=== PATIENT | male | born 1970 | race Caucasian/White ===

== ENCOUNTER 2023-06-05 02:00 | Day surgery (SDC) | payer BC, SELFPAY ==
[2023-05-26 14:27] VITALS: BMI 34.0
--- NOTE | 2023-05-26 14:33 | PC.NURSE ---
Report to the Outpatient Waiting Room, entrance under the green pavilion located off [facility], at time 12:30 on date 06/05/23. Planned Procedure Time: 2:30. Time changes happen often and if your time is changed the preop area will call you the afternoon before. - You and your visitor will be asked to self-screen and do not enter if you have any COVID symptoms. - A mask is optional within the hospital at this time. Patients may have clear liquids (water, carbonated beverages, clear teas, apple juice) until 3 hours prior to surgery with a maximum of 20 ounces. - No food from midnight until time of surgery Take the following medications with a SIP of water the morning of surgery: PAROXETINE DO NOT STOP ANY OF YOUR OTHER PRESCRIPTION MEDICATIONS PRIOR TO SURGERY ?EXCEPT THE FOLLOWING Medications to discontinue per physician: N/A Date to take last dose: N/A Please no make-up, nail belarusian, hairspray, perfume, deodorant, or body powder the day of surgery. No jewelry (including any body piercings) or valuables the day of surgery, leave them at home. Please take a shower or bath the night before, or the morning of, surgery with an antibacterial soap. Wear comfortable, loose fitting clothing. - Jewelry must be removed prior to entering the operating room. Rings and piercings that are not removed may be cut off. - The hospital will not accept responsibility for valuables. - Please leave all valuables, including medications, at home the day of surgery. If you are going home after surgery, a licensed mechanic driver must drive you home. - NO public transportation without another adult if you receive anesthesia. - We recommend that an adult stay with you for 24 hours following discharge. - We also recommend that you do not drive, make important decision, drink alcoholic beverages, or take any drugs that were not prescribed by your health care provider for at least 24 hours after your discharge time. Follow any additional instructions given to you from your surgeon. If you or anyone in your household have experienced Covid symptoms in the past week, please notify your surgeon or the nurse liaison at the phone number below for possible testing. Telephone instructions given to PT - BIBI SHEIKH and asked if any additional questions and then verbalized understanding. Patient advised to call surgeon office or pre surgery nurse liaison [phone] if any additional questions.
[2023-06-05] VITALS (11 sets, daily range): BP systolic 132–166; BP diastolic 71–96; PULSE 73–113; RESP 12–20; TEMP 36.4; O2SAT 97–100
--- NOTE | 2023-06-05 09:50 | ECG_ITS ---
Measurements Intervals [place] Rate: 69 P: 29 ME: 157 QRS: -4 QRSD: 96 T: 34 QT: 390 QTc: 419 Interpretive Statements SINUS RHYTHM NORMAL ECG NO PREVIOUS ECG AVAILABLE FOR COMPARISON Electronically Signed On 06-05-2023 11:38:02 CDT by Vel Jones D.O.
--- NOTE | 2023-06-05 11:49 | WPDANESEPPF ---
Anes - Initial Pre Proc Eval Procedure: Operation Date: 06/05/23 13:30 Proposed Procedures p Excision Left Arm Lipomas Times Three, Excision Right Arm Lipomas Times Two, Excison Lower Back Lipoma - Ori Malone MD Date/Time: 06/05/23 11:49 Surgeon: Ori Malone MD Pre Op Diagnosis: lipomas bilat arms, lower back lipoma Patient Data Age: 52 Gender: M Height: 1.75 m Weight: 108.1 kg Last Vital Signs Temp 97.6 F 06/05/23 11:18 Pulse 73 06/05/23 11:18 Resp 20 06/05/23 11:18 BP 139/90 06/05/23 11:18 Pulse Ox 97 06/05/23 11:18 O2 Del Method Room Air 06/05/23 11:18 Allergies Allergy/AdvReac Type Severity Reaction Status Date / Time Sulfa (Sulfonamide Allergy Severe Anaphylactic Verified 06/05/23 11:21 Antibiotics) Shock Bumble Bee Allergy Severe Anaphylactic Uncoded 06/05/23 11:20 Shock Cat Dander Allergy Severe Anaphylactic Uncoded 06/05/23 11:20 Shock Contrast Media Allergy Severe STOP Uncoded 06/05/23 11:20 BREATHING- SWELL UP SHELLFISH Allergy Severe SWELL UP Uncoded 06/05/23 11:20 AND CAN'T BREATH Home Medications Medication Instructions Recorded Confirmed Type albuterol sulfate 90 mcg/actuation 2 inh inhalation Q4H PRN shortness 05/01/23 06/05/23 Rx aerosol inhaler of breath or wheezing #8.5 grams losartan 50 mg tablet 50 mg PO DAILY #90 tabs 05/01/23 06/05/23 Rx paroxetine HCl 20 mg tablet 60 mg PO DAILY #270 tabs 05/01/23 06/05/23 Rx cetirizine 10 mg tablet (Zyrtec) 10 mg PO DAILY 05/26/23 06/05/23 History epinephrine 0.15 mg/0.15 mL 0.15 mg IM PRN PRN Anaphylaxis 06/05/23 06/05/23 History auto-injector (for 33 to 66 lb patients) Patient hx anesthesia problems: none Family hx anesthesia problems: none Results Review: All pre-operative results and documents have been reviewed as part of the pre-operative evaluation. [facility] Past Medical History Medical History History of non-Hodgkin's lymphoma Hypertension Pure hypercholesterolemia, unspecified Surgical History Surgical History History of cholecystectomy (2015) History of Hemal fundoplication History of tonsillectomy (2015) Family History Family History Father Multiple sclerosis CAD (coronary artery disease) Mother Diabetes mellitus Hypertension CAD (coronary artery disease) Social History Social History Smoking packs per day: 1 Smoking cigarettes per day: 20.0 Years smoked: 15 Smoking pack-years: 15.00 Smoking status: Former smoker Tobacco type: cigarettes Smoking end date: 11/27/99 Alcohol intake: current Alcohol use details: VERY RARE Substance use: never Substance use type: does not use Living arrangements: with family Additional living arrangements comments: CHILDREN Spiritual care concerns: No Anes - Eval Final PreProcedure Day of Procedure 06/05/23 11:49 Patient weight: obese Heart: regular rate and rhythm Lungs: clear to auscultation Airway: Mallampati scale class III Neurological: alert and oriented Last oral intake: >/= 8 hours ASA classification: III Emergent: no Anesthetic plan: proceed Anesthesia type and monitoring: general LMA and standard monitoring Results Review: All pre-operative results and documents have been reviewed as part of the pre-operative evaluation. Informed Consent: The patient's anesthetic plan and its attendant risks and benefits were discussed with the patient/family/POA. Questions were solicited and answers provided to the satisfaction of the patient/family/POA.
[2023-06-05] MEDS: LACTATED RINGERS 1,000 ML 30 ML IV CONT ×2 (11:54→15:01)
--- NOTE | 2023-06-05 12:27 | WPDHPUPDATE1 ---
History and Physical Update Update Date/Time: 06/05/23 12:27 History and Physical has been reviewed, including an updated exam of the patient. There are NO changes in the patient's condition. Risks, benefits, and alternatives have been discussed and questions answered. Patient agrees to proceed with procedure.
[2023-06-05] MEDS: ceFAZolin 2 GM/D5W 50 ML 2 GM/50 ML BAG IVPB (12:51)
[2023-06-05] MEDS: LIDO 1%/EPINEPHRINE 1:100,000 50 ML VIAL 20 ML INFILTRATE (14:24)
[2023-06-05] MEDS: fentaNYL CITRATE INJ (*CRX) 100 MCG/2 ML VIAL 25 MCG IV PUSH ×8 (15:34→15:57)
--- NOTE | 2023-06-05 16:20 | W.PM.PROC2 ---
Procedure Note - Detailed Date of Procedure 06/05/23 Pre-op Diagnosis lipomas bilat arms, lower back lipoma Post-op Diagnosis Same Procedure Performed Excision of lower back lipoma x1, right medial upper arm lipoma x1, right lateral forearm lipoma x1, left volar forearm lipoma x1, and left dorsal forearm lipoma x1. Surgeon Ori Malone MD Project Manager [employer]aci Concepcion, [employer] Anesthesia General Indications Patient is a 52-year-old gentleman who presents with complaints of multiple soft tissue subcutaneous masses in his bilateral arms as well as on his lower mid back region. He presents now for excision of all these masses. Findings All the masses were consistent grossly with benign lipomatous masses. The lower midback mass measured 3 x 2 x 1cm, left volar forearm lipoma measured 1.5x1.0x0.5cm, left dorsal forearm lipoma measured 2x1.5x1cm, right lateral forearm lipoma was 1x1x0.5cm, and right upper arm lipoma was 2x1x0.5cm. Description of Procedure After informed consent was obtained patient brought to the operating room was placed under general endotracheal anesthesia on operating table and then turned to the right lateral decubitus position on the operating table secured on a beanbag. The area the lower mid back region was then prepped and draped in usual sterile fashion a time-out was then performed correctly identifying the patient as well as procedure to be performed and verifying all the site markings. He was given perioperative IV antibiotics. I then made a transverse incision over the palpable mass in the mid lower back region with a scalpel dissected down through the subcutaneous tissue electrocautery. I then encountered the capsule of the lipomatous mass and dissected around the mass with a combination of electrocautery blunt finger dissection. Once I had the mass completely excised out and measured and it was 3cm in length by 2cm in width by 1cm in depth it was sent to pathology for examination. I then achieved hemostasis and incision electrocautery. I then closed the incision utilizing layers and 2-0 Vicryl sutures followed by interrupted 3-0 Vicryl sutures then lastly a 4-0 Monocryl suture to approximate the skin edges in a running subcuticular fashion. The incision was then cleaned and then skin glue was applied. I then turned my attention toward excising off the lipomas in the bilateral arms. He was then turned into the supine position on the operating table and both arms were then prepped and draped in usual sterile fashion circumferentially. Started with the left arm and all of the lipomas were excised out in similar fashion as follows. A small incision was made over the palpable lipomatous mass with the scalpel and then once I was down to the dermis of skin I then spread around the counseled lipoma utilizing Metzenbaum scissors and then the lipoma was excised out utilize electrocautery. The lipoma on the left volar forearm was 1.5cm in length by 1cm width by 0.5cm in depth. The lipoma on the left dorsal forearm area was 2cm in length by 1.5cm width by 1cm in depth. These were both sent separately to pathology for examination. Both of these wounds then closed utilizing interrupted 3-0 Vicryl suture the subcutaneous tissues the skin edges were approximated utilizing a running subcuticular 4 Monocryl suture. The incisions were then cleaned the skin glue was applied. Lastly we then turned our attention to excising the lipomas off of the right arm. Again the same technique was used on the right forearm lesion and I made a transverse incision over the subcutaneous mass with a scalpel. Metzenbaum scissors were used to spread around the capsule of the mass and then it was simply excised utilizing electrocautery. this lipoma measured 1cm in length by 1cm width by 0.5cm in depth and was sent to pathology for examination. the last lipoma that was excised was on the right inner upper arm. An oblique incision made with a scalpel overlying the ma
== END 2023-06-05 17:15 | disposition home or self-care (01) ==
PROVIDERS: PCP Family Medicine Adolescent Medicine; Visit Provider Surgery
PROC: (CPT 24075; principal; 2023-06-05 13:30)
DX: D17.22 Benign lipomatous neoplasm of skin and subcutaneous tissue of left arm (principal); D17.21 Benign lipomatous neoplasm of skin and subcutaneous tissue of right arm; D17.1 Benign lipomatous neoplasm of skin and subcutaneous tissue of trunk; I10 Essential (primary) hypertension; Z79.51 Long term (current) use of inhaled steroids; Z85.72 Personal history of non-Hodgkin lymphomas; Z87.891 Personal history of nicotine dependence; E66.9 Obesity, unspecified; Z68.35 Body mass index [BMI] 35.0-35.9, adult
CPT/HCPCS: 24075; 25075; 25071; 21931; 88304; 93005; A9270; J0330; J0690; J1100; J2250; J2405; J2704; J2710; J3010; J7120

== ENCOUNTER 2023-08-25 00:50 | Day surgery (SDC) | payer BC, SELFPAY ==
[2023-08-18 13:58] VITALS: BMI 35.4
--- NOTE | 2023-08-18 13:58 | PC.NURSE ---
Report to the Outpatient Waiting Room, entrance under the green pavilion located off [facility], at time 0730 on date 08/25/23. Planned Procedure Time: 0930. Time changes happen often and if your time is changed the preop area will call you the afternoon before. - You and your visitor will be asked to self-screen and do not enter if you have any COVID symptoms. - A mask is optional within the hospital at this time. Patients may have clear liquids (water, carbonated beverages, clear teas, apple juice) until 3 hours prior to surgery with a maximum of 20 ounces. - No food from midnight until time of surgery Take the following medications with a SIP of water the morning of surgery: PAROXETINE DO NOT STOP ANY OF YOUR OTHER PRESCRIPTION MEDICATIONS PRIOR TO SURGERY ?EXCEPT THE FOLLOWING Medications to discontinue per physician: N/A Date to take last dose: N/A Please no make-up, nail hong konger, hairspray, perfume, deodorant, or body powder the day of surgery. No jewelry (including any body piercings) or valuables the day of surgery, leave them at home. Please take a shower or bath the night before, or the morning of, surgery with an antibacterial soap. Wear comfortable, loose fitting clothing. - Jewelry must be removed prior to entering the operating room. Rings and piercings that are not removed may be cut off. - The hospital will not accept responsibility for valuables. - Please leave all valuables, including medications, at home the day of surgery. If you are going home after surgery, a licensed rental car ferry driver must drive you home. - NO public transportation without another adult if you receive anesthesia. - We recommend that an adult stay with you for 24 hours following discharge. - We also recommend that you do not drive, make important decision, drink alcoholic beverages, or take any drugs that were not prescribed by your health care provider for at least 24 hours after your discharge time. Follow any additional instructions given to you from your surgeon. If you or anyone in your household have experienced Covid symptoms in the past week, please notify your surgeon or the nurse liaison at the phone number below for possible testing. Telephone instructions given to PT - BIBI SHEIKH and asked if any additional questions and then verbalized understanding. Patient advised to call surgeon office or pre surgery nurse liaison [phone] if any additional questions.
[2023-08-25] VITALS (13 sets, daily range): BP systolic 92–155; BP diastolic 60–96; PULSE 66–100; RESP 13–20; TEMP 36.1–36.2; O2SAT 91–100
[2023-08-25] MEDS: LACTATED RINGERS 1,000 ML 30 ML IV CONT (08:44)
--- NOTE | 2023-08-25 09:41 | WPDHPUPDATE1 ---
History and Physical Update Update Date/Time: 08/25/23 09:41 History and Physical has been reviewed, including an updated exam of the patient. There are NO changes in the patient's condition. Risks, benefits, and alternatives have been discussed and questions answered. Patient agrees to proceed with procedure.
--- NOTE | 2023-08-25 09:42 | WPDANESEPPF ---
Anes - Initial Pre Proc Eval Procedure: Operation Date: 08/25/23 09:30 Proposed Procedures p Excision of Subcutaneous Mass Right Flank Times Two, Left Flank Times One - Ori Malone MD Date/Time: 08/25/23 09:42 Surgeon: Ori Malone MD Pre Op Diagnosis: Praveen Flank Subq masses Patient Data Age: 53 Gender: M Height: 1.75 m Weight: 109.8 kg Last Vital Signs Temp 97 F L 08/25/23 08:37 Pulse 79 08/25/23 08:37 Resp 14 08/25/23 08:37 BP 133/89 08/25/23 08:37 Pulse Ox 97 08/25/23 08:37 O2 Del Method Room Air 08/25/23 08:37 Allergies Allergy/AdvReac Type Severity Reaction Status Date / Time Sulfa (Sulfonamide Allergy Severe Anaphylactic Verified 08/25/23 08:46 Antibiotics) Shock Bumble Bee Allergy Severe Anaphylactic Uncoded 08/25/23 08:46 Shock Cat Dander Allergy Severe Anaphylactic Uncoded 08/25/23 08:46 Shock Contrast Media Allergy Severe STOP Uncoded 08/25/23 08:46 BREATHING- SWELL UP SHELLFISH Allergy Severe SWELL UP Uncoded 08/25/23 08:46 AND CAN'T BREATH Home Medications Medication Instructions Recorded Confirmed Type albuterol sulfate 90 mcg/actuation 2 inh inhalation Q4H PRN shortness 05/01/23 08/22/23 Rx aerosol inhaler of breath or wheezing #8.5 grams losartan 50 mg tablet 50 mg PO DAILY #90 tabs 05/01/23 08/22/23 Rx paroxetine HCl 20 mg tablet 60 mg PO DAILY #270 tabs 05/01/23 08/22/23 Rx cetirizine 10 mg tablet (Zyrtec) 10 mg PO DAILY 05/26/23 08/22/23 History epinephrine 0.15 mg/0.15 mL 0.15 mg IM PRN PRN Anaphylaxis 06/05/23 08/22/23 History auto-injector (for 33 to 66 lb patients) Patient hx anesthesia problems: none Family hx anesthesia problems: none Results Review: All pre-operative results and documents have been reviewed as part of the pre-operative evaluation. COUNTS INCLUDE 234 BEDS AT THE [facility] Past Medical History Medical History History of non-Hodgkin's lymphoma Hypertension Pure hypercholesterolemia, unspecified Surgical History Surgical History History of cholecystectomy (2014) History of Hemal fundoplication History of tonsillectomy (2015) Family History Family History Father Multiple sclerosis CAD (coronary artery disease) Mother Diabetes mellitus Hypertension CAD (coronary artery disease) Social History Social History Smoking packs per day: 1 Smoking cigarettes per day: 20.0 Years smoked: 15 Smoking pack-years: 15.00 Smoking status: Former smoker Tobacco type: cigarettes Smoking end date: 11/27/99 Alcohol intake: current Alcohol use details: VERY RARE Substance use: never Substance use type: does not use Living arrangements: with family Additional living arrangements comments: CHILDREN Spiritual care concerns: No Anes - Eval Final PreProcedure Day of Procedure 08/25/23 09:42 Patient weight: obese Heart: regular rate and rhythm Lungs: clear to auscultation Airway: Mallampati scale class II Neurological: alert and oriented Last oral intake: >/= 8 hours ASA classification: II Emergent: no Anesthetic plan: proceed Anesthesia type and monitoring: general ETT and standard monitoring Results Review: All pre-operative results and documents have been reviewed as part of the pre-operative evaluation. Informed Consent: The patient's anesthetic plan and its attendant risks and benefits were discussed with the patient/family/POA. Questions were solicited and answers provided to the satisfaction of the patient/family/POA.
[2023-08-25] MEDS: ceFAZolin 2 GM/D5W 50 ML 2 GM/50 ML BAG IVPB (09:55)
[2023-08-25] MEDS: LIDO 1%/EPINEPHRINE 1:100,000 20 ML VIAL INFILTRATE (10:30)
--- NOTE | 2023-08-25 11:04 | W.PM.PROC2 ---
Procedure Note - Detailed Date of Procedure 08/25/23 Pre-op Diagnosis Praveen Flank Subq masses Post-op Diagnosis Same Procedure Performed Excision of left flank lipoma x1 and excision of right flank lipoma x2. Surgeon Ori Malone MD Solidworks Designer [employer] [facility] Anesthesia General Indications Patient is a 53-year-old gentleman who has multiple lipomas on his body. He now presents with complaints of having soreness and enlargement of bilateral flank lipomas. He has 1 on the left side which is symptomatic and 2 on the right side which are symptomatic. Findings The mass is size were clinically consistent with benign lipomas. The 1 on the left flank was [id number]. The 2 on the right flank measured 0.8x0.8x0.5cm which was the 1 situated more inferior in the right flank and the 2nd lipoma was 4.5x3.5x1.0cm and this 1 was situated more superior in the right flank. Description of Procedure After informed consent was obtained patient brought to the operating room was placed under general endotracheal anesthesia on the gurney and then turned into the prone position on the operating table. Care was taken to make sure all the pressure points were well padded. The area the bilateral flank regions were then prepped and draped in usual sterile fashion. A time-out was then performed correctly identifying the patient as well as the procedure to what that was to be performed and verifying the bilateral flank site markings. She was given perioperative IV antibiotics. I 1st started by excising off the lipoma in the left lateral flank region. A transverse incision was made the scalpel dissecting down through the dermis skin with a scalpel I then switched to using sharp scissor dissection to identify the lipomatous mass. It had 2 parts but both parts were well circumscribed. I dissected out this lipoma from the surrounding subcutaneous tissues using electrocautery and scissor dissection. In aggregate this left flank lipoma measured [id number]. The incision was then irrigated sterile saline solution hemostasis was achieved electrocautery. It was then closed utilizing interrupted 3-0 Vicryl suture the subcu tissues in the skin edges were approximated utilizing a running subcuticular 4-0 Monocryl suture. The incision then had skin glue applied to it. I then approached excising the 2 lipomas off of the right flank. Again the similar fashion I made transverse incisions over both of these subcutaneous masses. Dissection was carried down through the dermis skin of the scalp with an utilizing a combination of electrocautery and sharp scissor dissection I was able to dissect out both of these lipomas from their surrounding subcutaneous tissues. The 1 situated more inferiorly in the right flank region measured 0.8x0.8x0.5cm. The 1 with more superiorly in the right flank region measured 4.5x3.5x1cm. Both these lipomatous masses were sent to pathology separately for examination. The incisions were then irrigated sterile saline solution hemostasis was achieved utilized electrocautery. The wounds were then closed utilizing interrupted 3-0 Vicryl sutures in subcutaneous tissues and the skin edges were then approximated utilizing a running subcuticular 4 Monocryl suture for both incisions. The incisions were then cleaned the skin glue was applied. The patient tolerated the procedure well no complications. All sponges, needles, and instrument counts were correct at the end procedure. EBL was _10__cc. The patient was awakened and taken to recovery in stable and satisfactory condition. Implants None Estimated Blood Loss 10 Drains No Packing No Pathology Yes (Bilateral flank lipomas sent to pathology) Complications No immediate complications Condition Stable Disposition PACU [facility] Billing Surgery - Charge Forward: Surgery Billing
[2023-08-25] MEDS: fentaNYL CITRATE INJ (*CRX) 100 MCG/2 ML VIAL 25 MCG IV PUSH ×8 (12:04→12:42)
[2023-08-25] MEDS: KETOROLAC 30 MG/ML VIAL (*BKC) IV PUSH (12:24)
[2023-08-25] MEDS: oxyCODONE HCL (*CRX) 5 MG TAB IR PO (12:50)
== END 2023-08-25 15:20 | disposition home or self-care (01) ==
PROVIDERS: PCP Family Medicine Adolescent Medicine; Visit Provider Surgery
PROC: (CPT 21931; principal; 2023-08-25 09:30)
DX: D17.1 Benign lipomatous neoplasm of skin and subcutaneous tissue of trunk (principal); I10 Essential (primary) hypertension; E78.00 Pure hypercholesterolemia, unspecified; Z87.891 Personal history of nicotine dependence; Z79.51 Long term (current) use of inhaled steroids; Z85.71 Personal history of Hodgkin lymphoma; E66.9 Obesity, unspecified; Z68.35 Body mass index [BMI] 35.0-35.9, adult
CPT/HCPCS: 21931 ×2; 21930; 88304; A9270; J0330; J0690; J1885; J2250; J2405; J2704; J3010; J7120

== ENCOUNTER 2024-11-06 15:53 | Emergency (ER) | payer BC, SELFPAY ==
--- NOTE | ~2024-11-06 | CT_ITS ---
EXAMINATION: CT abd pelvis lumbar wo con DATE: 11/06/2024 18:06 INDICATION: Abdominal pain. TECHNIQUE: Computed tomography (CT) of the abdomen and pelvis and lumbar spine was performed without intravenous contrast. Automated exposure control and iterative reconstruction technique were employed . The dose-length product was 1210.26 mGy-cm. COMPARISON: None FINDINGS: CT ABDOMEN AND PELVIS: The visualized portions of the lung bases demonstrate minimal atelectasis. No pleural effusion. The heart size is normal. No pericardial effusion. The liver is normal. There are c hanges of cholecystectomy. The spleen, pancreas, and adrenal glands are normal. There are cysts in th e kidneys measuring up to 17 mm on the left. There is no urolithiasis. The prostate is mildly enlarge d. There is a left inguinal hernia containing fat. There are no dilated loops of bowel. The appendix is normal. There are no pathologically enlarged lymph nodes. There is no free intraperitoneal fluid. CT LUMBAR SPINE: L5 is a transitional segment. There are chronic bilateral L5 pars defects. Vertebral body heights are normal. There is mildly decreased disc height at L4-L5. The following disc levels a re specifically discussed: L1-L2: The disc does not extend beyond the endplate margin. There is mild bilateral facet joint osteo arthritis. There is no neural foraminal stenosis. There is no central canal stenosis. L2-L3: The disc does not extend beyond the endplate margin. There is mild bilateral facet joint osteo arthritis. There is no neural foraminal stenosis. There is no central canal stenosis. L3-L4: The disc is bulging. There is mild bilateral facet joint osteoarthritis. There is mild bilater al neural foraminal stenosis. There is mild central canal stenosis. L4-L5: The disc is bulging. There is mild bilateral facet joint osteoarthritis. There is moderate rig ht and mild left neural foraminal stenosis. There is mild central canal stenosis. L5-S1: The disc does not extend beyond the endplate margin. There is mild left facet joint osteoarthr itis. There is no neural foraminal stenosis. There is no central canal stenosis. IMPRESSION: 1. No specific etiology for the patient's symptoms. 2. Mild lumbar spondylosis 3. Chronic bilateral L5 pars defects. Reviewed, dictated and finalized at location [facility]
[2024-11-06 16:01] VITALS: BP 150/94; PULSE 66; RESP 16; TEMP 36.4; O2SAT 100
--- NOTE | 2024-11-06 17:30 | ED_ITS ---
HPI - Abdominal Pain General Chief Complaint: Abdominal Pain <Kim Dickey PA-C - Last Filed: 11/11/24 17:55> Stated Complaint: abd pain <Kim Dickey PA-C - Last Filed: 11/11/24 17:55> Time Seen by Provider: 11/06/24 17:30 <Kim Dickey PA-C - Last Filed: 11/11/24 17:55> Focused HPI: This is a 54 year old male that presents to the ER for abdominal pain as well as low back pain. Reports this started in his left lower back a couple of weeks ago. His right lower abdomen started hurting today. He was supposed to have an outpatient CT scan to evaluate this, but was not able to get it done due to insurance issues which prompted him to be seen. Reports nausea. No known injuries. Denies fever, vomiting, diarrhea, dysuria, hematuria, bowel/bladder incontinence. GENERAL: Well-appearing, well-nourished, and in no acute distress. HEAD: Normocephalic, atraumatic. CHEST: Clear to auscultation. ?No respiratory distress. HEART: Regular rate and rhythm.? NEURO: ?Alert and oriented x3. Patient screened in triage and initial orders placed.? ?Additional care and disposition to be based upon?diagnostic testing and treatment. <Kim Dickey PA-C - Last Filed: 11/11/24 17:55> History of Present Illness HPI narrative: 54-year-old male with history of GERD, hypertension, and anxiety presents to the emergency department for left lower back pain and right lower quadrant abdominal pain. Patient states he has pain in his left low back but most prominently over his left buttock that radiates to his left thigh and left groin for several weeks. He cannot identify any injury or trauma. Denies bowel or bladder incontinence, urinary retention, saddle anesthesia, use of IV drugs, fever, history of immunocompromised condition. He is reporting right lower quadrant abdominal pain for the past 24-36 hours. Cannot identify any aggravating or alleviating factors. Reports nausea, no fever emesis. No diarrhea or changes in bowel habits. Reports history of the Shakeel Fundoplication, denies other abdominal surgeries. Patient was sent to [facility] [place] [facility] by his PCP Dr. Jarvis for CT scan due to concerns for appendicitis, however due to insurance issues the patient was directed to the ED for evaluation. <Aleyda Adkins PA-C - Last Filed: 11/06/24 20:51> Related Data Home Medications: Home Medications ?Medication ?Instructions ?Recorded ?Confirmed ?Last Taken ?Type cetirizine 10 mg tablet (Zyrtec) 10 mg PO DAILY 05/26/23 11/06/24 06/04/23 History <Kim Dickey PA-C - Last Filed: 11/11/24 17:55> Allergies/Adverse Reactions: Allergies Allergy/AdvReac Type Severity Reaction Status Date / Time Sulfa (Sulfonamide Allergy Severe Anaphylactic Verified 11/06/24 13:44 Antibiotics) Shock Bumble Bee Allergy Severe Anaphylactic Uncoded 11/06/24 13:44 Shock Cat Dander Allergy Severe Anaphylactic Uncoded 11/06/24 13:44 Shock Contrast Media Allergy Severe STOP Uncoded 11/06/24 13:44 BREATHING- SWELL UP SHELLFISH Allergy Severe SWELL UP Uncoded 11/06/24 13:44 AND CAN'T BREATH <Kim Dickey PA-C - Last Filed: 11/11/24 17:55> Review of Systems 2 Review of Systems: All systems reviewed & are unremarkable except as noted in HPI and below <Aleyda Adkins PA-C - Last Filed: 11/06/24 20:51> PMFSH Past Medical History Medical History: Medical History Hypertension History of non-Hodgkin's lymphoma Pure hypercholesterolemia, unspecified <Kim Dickey PA-C - Last Filed: 11/11/24 17:55> Surgical History Surgical History: Surgical History History of cholecystectomy (2014) History of Hemal fundoplication History of tonsillectomy (2014) <Kim Dickey PA-C - Last Filed: 11/11/24 17:55> Family History Family History: Family History Father Multiple sclerosis CAD (coronary artery disease) Mother Diabetes mellitus Hypertension CAD (coronary artery disease) <Kim Dickey PA-C - Last Filed: 11/11/24 17:55> Social History Social History: Social History Smoking packs per day: 1 Smoking cigarettes per day: 20.0 Years smoked: 15 Smoking pack-years: 15.00 Smoking status: Former smoker Tobacco type: cigarettes Smoking end date: 11/27/99 Alcohol intake: current Alcohol use details: VERY RARE Substance use: never Substance use type: does not use Living arrangements: with family Additional living arrangements comments: CHILDREN Spiritual care concerns: No <Kim Dickey PA-C - Last Filed: 11/11/24 17:55> Exam 2 Narrative: GENERAL: Well-appearing, well-nourished, and in no acute distress. HEAD: Normocephalic, atraumatic. EYES: PERRLA and EOMI. ENT: Nares clear, no rhinorrhea or epistaxis. Mucous membranes moist. NECK: Supple. CHEST: Clear to auscultation. No respiratory distress. HEART: Regular rate and rhythm. No murmur heard. Normal peripheral pulses. ABDOMEN: Normoactive bowel sounds. Abdomen soft with tenderness in the right lower quadrant. No rebound or rigidity. No CVA tenderness. BACK: No significant midline spinous tenderness, step-offs or deformities. Point tenderness over the left piriformis. No skin changes to the back. Positive left straight leg raise. No saddle anesthesia. No decreased sensation throughout extremity. Extremities pink, warm and dry. EXTREMITIES: Normal range of motion. No edema. SKIN: Warm, dry, no rash. NEURO: No focal deficits. Alert and oriented x3 <Aleyda Adkins PA-C - Last Filed: 11/06/24 20:51> Course Vital Signs Vital signs: Vital Signs Temperature 97.6 F 11/06/24 16:01 Pulse Rate 66 11/06/24 16:01 Respiratory Rate 16 11/06/24 16:01 Blood Pressure 150/94 H 11/06/24 16:01 Pulse Oximetry 100 11/06/24 16:01 Temperature 97.6 F 11/06/24 16:01 Pulse Rate 80 11/06/24 21:14 Respiratory Rate 16 12/11/24 21:14 Blood Pressure 138/72 11/06/24 21:14 Pulse Oximetry 98 11/06/24 21:14 <Kim Dickey PA-C - Last Filed: 11/11/24 17:55> Vital Signs Temperature 97.6 F 11/06/24 16:01 Pulse Rate 66 11/06/24 16:01 Respiratory Rate 16 11/06/24 16:01 Blood Pressure 150/94 H 11/06/24 16:01 Pulse Oximetry 100 11/06/24 16:01 Temperature 97.6 F 11/06/24 16:01 Pulse Rate 80 11/06/24 21:14 Respiratory Rate 16 11/06/24 21:14 Blood Pressure 138/72 11/06/24 21:14 Pulse Oximetry 98 11/06/24 21:14 <Aleyda Adkins PA-C - Last Filed: 11/06/24 20:51> MDM - Abdominal Pain MDM Narrative Medical decision making narrative: 54-year-old male presents to emergency department for left low back pain for several weeks and right lower quadrant abdominal pain for the past day. See HPI for further history. Vitals with elevated blood pressure, otherwise unremarkable. He is afebrile nontoxic appearing. Exam is significant for point tenderness over the left piriformis with positive straight leg raise consistent with piriformis syndrome. He has no significant lumbar spinous tenderness. No red flag back pain signs. He also has tenderness of her lower quadrant. CBC shows no leukocytosis or anemia. Chemistries are unremarkable. UA is unremarkable. Lipase is normal. CT abdomen pelvis shows no specific etiology for patient's symptoms, normal appendix. There is mild lumbar spondylosis and chronic bilateral L5 pars defect. Patient was updated on workup. He received Flexeril and lidocaine patch as well as Tylenol in the ED. These will be sent to the pharmacy. Discussed importance for close follow-up with PCP and possible need for physical therapy due to concerns for piriformis syndrome. Also discussed strict ED return precautions. He is agreeable with the plan verbalized understanding. Discharged in stable condition. <Aleyda Adkins PA-C - Last Filed: 11/06/24 20:51> Lab Data Result diagrams: 11/06/24 19:40 11/06/24 19:40 <Kim Dickey PA-C - Last Filed: 11/11/24 17:55> Labs: Lab Results 11/06/24 11/06/24 Range/Units 19:40 19:58 WBC 7.1 (4.5-10.0) K/mm3 RBC 5.37 (4.6-6.20) M/mm3 Hgb 15.5 (14.0-18.0) g/dL Hct 45.9 (42.0-52.0) % MCV 85.5 (80-100) fl MCH 28.9 (26-34) pg MCHC 33.8 (32-36) g/dl RDW 12.6 (11.5-14.5) % Plt Count 277 (150-375) k/mm3 MPV 9.2 (7.4-10.4) fl Immature Gran % (Auto) 0.3 (0-0.5) % Neut % (Auto) 49.3 (45.5-73.1) % Lymph % (Auto) 39.0 (18.3-44.2) % [place] % (Auto) 8.3 (2.6-8.5) % Eos % (Auto) 2.7 (0-4.4) % Baso % (Auto) 0.4 (0.2-1.2) % Lymph # (Auto) 2.78 (0.9-3.2) K/mm3 [place] # (Auto) 0.6 (0.1-0.6) K/mm3 Eos # (Auto) 0.2 (0-0.3) K/mm3 Baso # (Auto) 0.0 (0.0-0.1) K/mm3 Abs Immat Gran (auto) 0.02 (0.00-0.031) K/mm3 Absolute Neuts (auto) 3.5 (1.3-6.7) K/mm3 Absolute Nucleated RBC 0.000 (0.0-0.012) K/mm3 Nucleated RBC % 0.0 (0.0-0.2) % Sodium 138 (137-145) mmol/L Potassium 3.6 (3.4-5.0) mmol/L Chloride 102 (98-107) mmol/L Carbon Dioxide 30 (22-30) mmol/L Anion Gap 6 (4-12) mmol/L BUN 15 (9-20) mg/dL Creatinine 1.00 (0.7-1.3) mg/dL Estim Creat Clear Calc 94 ml/min Estimated GFR > 60 (59 - ) Glucose 126 H (65-110) mg/dL Calcium 9.3 (8.4-10.2) mg/dL Total Bilirubin 1.6 H (0.2-1.3) mg/dL AST 32 (17-59) U/L ALT 39 (6-50) U/L Alkaline Phosphatase 73 (38-126) U/L Total Protein 8.0 (6.3-8.2) g/dL Albumin 4.5 (3.5-5.1) g/dL Lipase 76 (23-300) U/L Urine Color Yellow (Yellow) Urine Appearance Clear (Clear) Urine pH 5.5 (5.0-9.0) Ur Specific [place] 1.028 (1.001-1.035) Urine Protein Negative (Negative) mg/dL Urine Glucose (UA) Negative (Negative) mg/dL Urine Ketones Negative (Negative) mg/dL Ur Blood (Man) Negative (Negative) Urine Nitrate Negative (Negative) Urine Bilirubin Negative (Negative) Urine Urobilinogen 0.2 (<2.0) mg/dL Leukocyte Esterase Rfl Negative (Negative) MARY JANE/UL <Kim Dickey PA-C - Last Filed: 11/11/24 17:55> Lab Results 11/06/24 11/06/24 Range/Units 19:40 19:58 WBC 7.1 (4.5-10.0) K/mm3 RBC 5.37 (4.6-6.20) M/mm3 Hgb 15.5 (14.0-18.0) g/dL Hct 45.9 (42.0-52.0) % MCV 85.5 (80-100) fl MCH 28.9 (26-34) pg MCHC 33.8 (32-36) g/dl RDW 12.6 (11.5-14.5) % Plt Count 277 (150-375) k/mm3 MPV 9.2 (7.4-10.4) fl Immature Gran % (Auto) 0.3 (0-0.5) % Neut % (Auto) 49.3 (45.5-73.1) % Lymph % (Auto) 39.0 (18.3-44.2) % [place] % (Auto) 8.3 (2.6-8.5) % Eos % (Auto) 2.7 (0-4.4) % Baso % (Auto) 0.4 (0.2-1.2) % Lymph # (Auto) 2.78 (0.9-3.2) K/mm3 [place] # (Auto) 0.6 (0.1-0.6) K/mm3 Eos # (Auto) 0.2 (0-0.3) K/mm3 Baso # (Auto) 0.0 (0.0-0.1) K/mm3 Abs Immat Gran (auto) 0.02 (0.00-0.031) K/mm3 Absolute Neuts (auto) 3.5 (1.3-6.7) K/mm3 Absolute Nucleated RBC 0.000 (0.0-0.012) K/mm3 Nucleated RBC % 0.0 (0.0-0.2) % Sodium 138 (137-145) mmol/L Potassium 3.6 (3.4-5.0) mmol/L Chloride 102 (98-107) mmol/L Carbon Dioxide 30 (22-30) mmol/L Anion Gap 6 (4-12) mmol/L BUN 15 (9-20) mg/dL Creatinine 1.00 (0.7-1.3) mg/dL Estim Creat Clear Calc 94 ml/min Estimated GFR > 60 (59 - ) Glucose 126 H (65-110) mg/dL Calcium 9.3 (8.4-10.2) mg/dL Total Bilirubin 1.6 H (0.2-1.3) mg/dL AST 32 (17-59) U/L ALT 39 (6-50) U/L Alkaline Phosphatase 73 (38-126) U/L Total Protein 8.0 (6.3-8.2) g/dL Albumin 4.5 (3.5-5.1) g/dL Lipase 76 (23-300) U/L Urine Color Yellow (Yellow) Urine Appearance Clear (Clear) Urine pH 5.5 (5.0-9.0) Ur Specific [place] 1.028 (1.001-1.035) Urine Protein Negative (Negative) mg/dL Urine Glucose (UA) Negative (Negative) mg/dL Urine Ketones Negative (Negative) mg/dL Ur Blood (Man) Negative (Negative) Urine Nitrate Negative (Negative) Urine Bilirubin Negative (Negative) Urine Urobilinogen 0.2 (<2.0) mg/dL Leukocyte Esterase Rfl Negative (Negative) MARY JANE/UL <Aleyda Adkins PA-C - Last Filed: 11/06/24 20:51> Imaging Data Radiologist's impression: ITS Impressions Miscellaneous CT Procedure 11/06/24 18:08 IMPRESSION: 1. No specific etiology for the patient's symptoms. 2. Mild lumbar spondylosis 3. Chronic bilateral L5 pars defects. <Kim Dickey PA-C - Last Filed: 11/11/24 17:55> ITS Impressions Miscellaneous CT Procedure 11/06/24 18:08 IMPRESSION: 1. No specific etiology for the patient's symptoms. 2. Mild lumbar spondylosis 3. Chronic bilateral L5 pars defects. <Aleyda Adkins PA-C - Last Filed: 11/06/24 20:51> Critical Care Time Critical Care Time Critical Care Time: No <Kim Dickey PA-C - Last Filed: 11/11/24 17:55> Discharge Plan Discharge Clinical Impression: Abdominal pain, acute, right lower quadrant Piriformis syndrome Qualifiers: Laterality: right Qualified Code(s): G57.01 - Lesion of sciatic nerve, right lower limb <Kim Dickey PA-C - Last Filed: 11/11/24 17:55> Patient Disposition: Home, Self-Care <ABRAHAM Astorga Last Filed: 11/11/24 17:55> Condition: Stable <ABRAHAM Astorga Last Filed: 11/11/24 17:55> Instructions: Antibiotic Form, Abdominal Pain (ED), Piriformis Syndrome (ED), Back Pain (ED), Lower Back Exercises (ED) <ABRAHAM Astorga Last Filed: 11/11/24 17:55> Additional Instructions: Your evaluated in the emergency department for right lower quadrant abdominal pain and left low back pain. Your workup here shows no evidence of appendicitis. Your exam is consistent with piriformis syndrome as discussed. Please take the medications as needed and follow-up closely with her primary care provider she may need physical therapy. Return to the emergency department if you develop new or worsening abdominal pain, vomiting, fever, numbness in her groin, you lose control of her bowel or bladder, or other concerning symptoms. <Kim Dickey PA-C - Last Filed: 11/11/24 17:55> Patient Language: Slovenian <Kim Dickey PA-C - Last Filed: 11/11/24 17:55> Prescriptions: New cyclobenzaprine 10 mg tablet 10 mg PO TID PRN (Reason: muscle spasm) Qty: 14 0RF lidocaine 5 % adhesive patch,medicated 1 patch topical DAILY Qty: 15 0RF Rx Instructions: leave on most painful area for up to 12 hrs. do not use more than 1 patch in a 24-hour period. acetaminophen 500 mg capsule 500 mg PO Q6H PRN (Reason: pain) Qty: 14 0RF No Action paroxetine HCl 30 mg tablet 60 mg PO DAILY Qty: 180 2RF cetirizine [Zyrtec] 10 mg Tablet 10 mg PO DAILY albuterol sulfate 90 mcg/actuation HFA aerosol inhaler See Rx Instructions .ROUTE .COMPLEX Qty: 9 1RF Dose Instruction: INHALE 2 PUFFS BY MOUTH EVERY 4 HOURS NEEDED FOR SHORTNESS OF BREATH OR WHEEZING Rx Instructions: INHALE 2 PUFFS BY MOUTH EVERY 4 HOURS NEEDED FOR SHORTNESS OF BREATH OR WHEEZING losartan 50 mg tablet 50 mg PO DAILY Qty: 90 1RF epinephrine [EpiPen 2-Rah] 0.3 mg/0.3 mL auto-injector 0.3 mg IM ONCE Qty: 2 1RF Rx Instructions: as a single dose; may repeat once prednisone 10 mg tablet See Rx Instructions PO DIRECTED Qty: 52 0RF Rx Instructions: Take 6 daily x4, 4 daily x4, 2 daily x4, 1 daily x4 orally as directed; see taper instructions <Kim Dickey PA-C - Last Filed: 11/11/24 17:55> Follow-up/Referrals: Dr. Malone [Other] Haroon Gomez MD [Primary Care Provider] - <Kim Dickey PA-C - Last Filed: 11/11/24 17:55>
[2024-11-06 19:40] VITALS: BP 142/97; PULSE 85; RESP 16; O2SAT 100
[2024-11-06 19:48] LABS: Basophils Percent Auto 0.4 % (0.2-1.2); Eosinophils Absolute Auto 0.2 K/mm3 (0-0.3); Eosinophils Percent Auto 2.7 % (0-4.4); Hematocrit 45.9 % (42.0-52.0); Hemoglobin 15.5 g/dL (14.0-18.0); Immature Granulocyte Absolute 0.02 K/mm3 (0.00-0.031); Immature Granulocyte Percent A 0.3 % (0-0.5); Lymphocytes Absolute Auto 2.78 K/mm3 (0.9-3.2); Mean Corpuscular HGB Conc 33.8 g/dl (32-36); Mean Corpuscular Hemoglobin 28.9 pg (26-34); Mean Corpuscular Volume 85.5 fl (80-100); Mean Platelet Volume 9.2 fl (7.4-10.4); Monocytes Absolute Auto 0.6 K/mm3 (0.1-0.6); Monocytes Percent Auto 8.3 % (2.6-8.5); Neutrophils Absolute Auto 3.5 K/mm3 (1.3-6.7); Neutrophils Percent Auto 49.3 % (45.5-73.1); Platelet Count Result 277 k/mm3 (150-375); Red Blood Count 5.37 M/mm3 (4.6-6.20); Red Cell Distribution Width 12.6 % (11.5-14.5); White Blood Count 7.1 K/mm3 (4.5-10.0)
[2024-11-06 19:57] LABS: Alanine Aminotransferase 39 U/L (6-50); Albumin Level 4.5 g/dL (3.5-5.1); Alkaline Phosphatase 73 U/L (38-126); Anion Gap 6 mmol/L (4-12); Aspartate Amino Transferase 32 U/L (17-59); Bilirubin,Total 1.6 mg/dL (0.2-1.3); Blood Urea Nitrogen 15 mg/dL (9-20); Calcium 9.3 mg/dL (8.4-10.2); Carbon Dioxide 30 mmol/L (22-30); Chloride 102 mmol/L (98-107); Estimated CRCL calculation 94 ml/min; Estimated Glomerular Filt Rate > 60; Glucose 126 mg/dL (65-110); Lipase 76 U/L (23-300); Potassium 3.6 mmol/L (3.4-5.0); Sodium 138 mmol/L (137-145)
[2024-11-06 20:05] LABS: Add Urine Microscopic? NO; Appearance Urine Clear (Clear); Bilirubin Urine Negative (Negative); Blood Urine Negative (Negative); Color Urine Yellow (Yellow); Glucose Urine UA Negative (Negative); Ketones Urine Negative (Negative); Leukocyte Esterase Ur Negative LEU/UL (Negative); Nitrate Urine Negative (Negative); Protein Urine Negative (Negative); Specific Grav Ur 1.028 (1.001-1.035); Urobilinogen Urine 0.2 mg/dL (<2.0); pH Urine 5.5 (5.0-9.0)
[2024-11-06] MEDS: ACETAMINOPHEN 500 MG TABLET 1000 MG PO (21:09)
[2024-11-06] MEDS: LIDOCAINE 5% PATCH 1 PATCH TRANSDERM (21:10)
[2024-11-06] MEDS: CYCLOBENZAPRINE HCL 10 MG TABLET PO (21:10)
[2024-11-06 21:14] VITALS: BP 138/72; PULSE 80; RESP 16; O2SAT 98
== END 2024-11-06 21:31 | disposition home or self-care (01) ==
PROVIDERS: Physician Assistant; Emergency Provider Physician Assistant; PCP Family Medicine Adolescent Medicine
DX: R10.31 Right lower quadrant pain (principal); G57.01 Lesion of sciatic nerve, right lower limb; I10 Essential (primary) hypertension; E78.00 Pure hypercholesterolemia, unspecified; K21.9 Gastro-esophageal reflux disease without esophagitis; Z85.72 Personal history of non-Hodgkin lymphomas; Z87.891 Personal history of nicotine dependence; Z90.49 Acquired absence of other specified parts of digestive tract; M47.816 Spondylosis without myelopathy or radiculopathy, lumbar region
CPT/HCPCS: 36415; 72131; 74176; 80053; 81003; 83690; 85025; 99284; A9270

== ENCOUNTER 2024-12-16 08:42 | Outpatient (CLI) | payer BC, SELFPAY ==
--- NOTE | ~2024-12-16 | MR_ITS ---
MRI of the lumbar spine Clinical History: Left sciatica Technique: Axial T2-weighted images, and sagittal T1-weighted, T2-weighted, and T2 fat-sat images wer e acquired. Findings: There is no fracture or subluxation of lumbar spine. Vertebral bodies maintain alignment an d alignment. No bone marrow signal abnormality seen. At L1-L2, L2-L3, L3-L4, intervertebral discs maintain normal signal and position. No disc bulge or he rniation T levels. There are minimal facet joint degenerative changes. No spinal canal stenosis or ne ural foraminal narrowing at these levels. At L4-L5, there is disc desiccation with mild central disc bulge and tiny annular fissure. There is m ild to moderate facet arthropathy, left worse than right. No central canal stenosis. There is mild bi lateral neural foraminal narrowing. At L5-S1, there is no disc bulge or herniation. No spinal canal stenosis or neural foraminal narrowin g. Paravertebral soft tissues are unremarkable. Impression: [id number] degenerative spondylitic changes at L4-L5, as above. Reviewed, dictated and finalized at [facility] M. [employer] Impression: [id number] degenerative spondylitic changes at L4-L5, as above.
== END 2024-12-16 08:43 | disposition home or self-care (01) ==
LOC: MICIMG 08:43
PROVIDERS: PCP Family Medicine Adolescent Medicine; Visit Provider Family Medicine Adolescent Medicine
DX: M47.816 Spondylosis without myelopathy or radiculopathy, lumbar region (principal); M54.32 Sciatica, left side
CPT/HCPCS: 72148

== ENCOUNTER 2024-12-26 01:09 | Day surgery (SDC) | payer BC, SELFPAY ==
[2024-12-23 11:16] VITALS: BMI 35.2
--- OUTSIDE RECORDS SUMMARY | 2024-12-26 01:12 | XMS_ITS | Referral Summary ---
Author Organization [facility] Address [address] [place] [address] Care Team Providers Care Balling Machine Operator Name Role Phone Haroon Gomez MD Primary Care Provider + Source Comments [facility],non-owned Affiliates and Associated Physician Practices is amultiple site organization consisting of ambulatory clinics and hospital sitesin [place], [place], [place] and [place]. This disclosure is being madepursuant to the Care Everywhere program and may not contain all information available regarding this patient. Last updated 18.[facility] Encounters Date Type Department Care Team Description 12/22/2024 Travel 12/22/2024 1:56 PM BAG SHAKER - 12/22/2024 11:59 PM BAG SHAKER Hospital Encounter [facility] [address] [place] [address] Katya Zapata, INDEPENDENT INSURANCE ADJUSTER-CASINO DEALER Discharge Disposition: Home or Self Care 12/22/2024 1:35 PM BAG SHAKER Video Visit [facility] [address] [place] [address] Melissa Jones, INDEPENDENT INSURANCE ADJUSTER-CASINO DEALER Referral of patient without examination or treatment from Last 3 Months Allergies Active Allergy Reactions Criticality Noted Date Comments Bee Anaphylaxis High 08/07/2010 Iodine 08/07/2010 Sulfa Drugs Urticaria Medium 02/05/2020 Medications * Be aware that medications may not be up to date on this document. Alwaysverify current medications with the patient. Medication Sig Dispensed Refills Start Date End Date Status PARoxetine (PAXIL) 40 MG tablet Take 40 mg by mouth once daily Active cetirizine (ZYRTEC ALLERGY) 10 MG tablet Take 10 mg by mouth once daily Active pantoprazole EC (PROTONIX) 40 MG tablet Take 1 tablet by mouth once daily 30 tablet 6 01/14/2019 Active lisinopril (PRINIVIL; ZESTRIL) 10 MG tablet 12/16/2019 Act sandra cyclobenzaprine (Flexeril) 10 MG tablet Take 1 (one) tablet by mouth 3 times daily as needed for Muscle Spasms 30 tablet 09/19/2022 Active naproxen (Naprosyn) 500 MG tablet Take 1 (one) tablet by mouth 2 times daily 60 tablet 09/19/2022 Active Active Problems Problem Noted Date Diagnosed Date Other chest pain 01/13/2019 Immunizations Name Administration Dates Next Due INFLUENZA VACCINE, QUADR. (F LUZONE; FLULAVAL; FLUARIX; AFLURIA QUADRIVALENT; 6MO+), 0.5 ML (IIV4) 01/14/2019 Social History Tobacco Use Types Packs/Day Years Used Date Smoking Tobacco: Former Cigarettes 0 04/29/2001 - 04/29/2002 Smokeless Tobacco: Never Tobacco Cessation:Counseling Given: Yes Alcohol Use Standard Drinks/Week Comments No 0 (1 standard drink = 0.6 oz pur e alcohol) PHQ-2 Answer Date Recorded Patient Health Questionnaire-2 Score 0 12/22/2024 Sex and Gender Information Value Date Recorded Sex Assigned at Not on file Gender Identity Not on file Sexual Orientation Not on file Last Filed Vital Signs Vital Sign Reading Time Taken Comments Blood Pressure 152/94 12/22/2024 2:32 PM BAG SHAKER Pulse 87 12/22/2024 2:32 PM BAG SHAKER Temperature 36.8 ??C (98.2 ??F) 12/22/2024 2:32 PM CS T Respiratory Rate 18 12/22/2024 2:32 PM BAG SHAKER Oxygen Saturation 99% 12/22/2024 2:32 PM BAG SHAKER Inhaled Oxygen Concentration - - Weight 102.5 kg (226 lb) 09/19/2022 8:23 AM CDT Height 175.3 cm (5' 9 ) 09/19/2022 8:23 AM CDT Body Mass Index 33.37 09/19/2022 8:23 AM CDT Functional Status Functional Status Response Date of Assess ment Is person deaf or have serious hearing difficult y? No 01/17/2019 Is person blind or have serious difficulty seein g? No 01/17/2019 Does person have serious dif ficulty walking/climbing stairs? No 01/17/2019 Does person have difficulty dressing/bathing? No 01/17/2019 Does person have difficulty doing errands alone? No 01/17/2019 Cognitive Status Response Date of Assessm ent Does person have difficulty concentrating/remembering/making decisions? No 01/17/2019 Plan of Treatment Not on file Procedures Procedure Name Priority Date/Time Associated Diagnosis Comments CULTURE URINE Routine 12/22/2024 2:58 PM BAG SHAKER Urinary urgency URINALYSIS - POCT (IP) URGENT CARE Routine 12/22/2024 2:52 PM BAG SHAKER Urinary urgency from Last 3 Months Results * CULTURE URINE (12/22/2024 2:58 PM BAG SHAKER) Culture Urine <10,000 CFU/mL urogenital catherine KEE 12/24/2024 1:21 AM BAG SHAKER [facility] Urine URINE SPECIMEN OBTAINED BY CLEAN CATCH PROCEDURE / Unknown Collection / Unknown 12/22/2024 2:58 PM BAG SHAKER 12/22/2024 2:58 PM BAG SHAKER Katya [facility] - MICROBIOL OGY ORDERABLES [facility] [address] [place] [address], [facility] [phone] * URINALYSIS - POCT (IP) URGENT CARE (12/22/2024 2:52 PM BAG SHAKER) Glucose UA NEG Negative [facility] LD URGENT CARE Bilirubin UA NEG Negative [facility] Ketone UA NEG Negative [facility] Specific [place] UA POCT 1.000 1.000 - 1.030 [facility] Blood UA NEG Negative [facility] pH UA 6.5 5.0 - 8.0 pH units [facility] Protein UA NEG Negative [facility] Urobilinogen UA 0.2 0.2 - 1.0 EU/dL [facility] Nitrite UA NEG Negative [facility] Leukocyte UA NEG Negative [facility] QC Verified Yes Yes [facility] Urine URINE / Unknown 12/22/2024 2 :52 PM BAG SHAKER Katya Lynne Zapata APRN-CASINO DEALER LAB - POINT OF CARE ORDERABLES [facility] [address] [facility] [place] [address], [facility] [phone] from Last 3 Months Advance Directives * Full Code (Latest Code Status on File) Date Activated Date Inactivated Comments 01/13/2019 10:54 PM 01/14/2019 8:30 PM * Full Code Date Activated Date Inactivated Comments 08/07/2010 5:21 AM 08/08/2010 12:34 AM Care Teams Balling Machine Operator Relationship Specialty Start Date End Date Haroon Gomez MD [address] [place] [id number] PCP - General Family Medicine 01/13/19
--- OUTSIDE RECORDS SUMMARY | 2024-12-26 01:12 | XMS_ITS | Clinical Summary ---
Author Organization [facility] Address [address] [facility] [place] [address] Care Team Providers Care Stretching Press Operator Name Role Phone Haroon Gomez MD Primary Care Provider + Source Comments [facility],non-owned Affiliates and Associated Physician Practices is amultiple site organization consisting of ambulatory clinics and hospital sitesin [place], [place], [place] and [place]. This disclosure is being madepursuant to the Care Everywhere program and may not contain all information available regarding this patient. Last updated 18.[facility] Allergies Active Allergy Reactions Criticality Noted Date [...] Date Diagnosed Date Other chest pain 01/13/2019 Encounters Date Type Department Care Team Description 12/22/2024 1:56 PM BALLASTER - 12/22/2024 11:59 PM BALLASTER Hospital Encounter [facility] [address] [address] Katya Zapata APRN-CNP Discharge Disposition: Home or Self Care 12/22/2024 1:35 PM BALLASTER Video Visit [facility] [address] [id number] Melissa Jones APRN-CNP Referral of patient without examination or treatment 12/22/2024 Travel from Last 3 Months Immunizations Name Administration Dates Next Due INFLUENZA VACCINE, QUADR. (F LUZONE; FLULAVAL; FLUARIX; AFLURIA QUADRIVALENT; 6MO+), 0.5 ML (IIV4) 01/14/2019 Family History Medical History Relation Name Comments Multiple Sclerosis Father CAD (Coronary Artery Disease) Mother Cancer - Breast Mother Diabetes - Type 1 Mother Relation Name Status Comments Father Mother Social History Tobacco Use Types Packs/Day Years [...] Comments Blood Pressure 152/94 12/22/2024 2:32 PM BALLASTER Pulse 87 12/22/2024 2:32 PM BALLASTER Temperature 36.8 ??C (98.2 ??F) 12/22/2024 2:32 PM CS T Respiratory Rate 18 12/22/2024 2:32 PM BALLASTER Oxygen Saturation 99% 12/22/2024 2:32 PM BALLASTER Inhaled Oxygen Concentration - - Weight 102.5 kg (226 lb) 09/19/2022 8:23 AM CDT Height 175.3 cm (5' 9 ) 09/19/2022 8:23 AM CDT Body Mass Index 33.37 09/19/2022 8:23 AM CDT Plan of Treatment Health Maintenance Due Date Last Done Comments COLOGUARD (AGES 45-75) - COL ON CA SCREENING 1971 COLON MONITORING 1971 COLONOSCOPY - COLON CA SCREENING 1971 CT COLONOGRAPHY - COLON CA SCREENING 1971 Colorectal Cancer Screening 1971 FIT - COLON CA SCREENING 1971 FLEX SIG - COLON CA SCREENING 1971 LIPID TESTING 1971 HIV SCREENING 1986 HEPATITIS C SCREENING 07/11/1989 DTAP/TDAP/TD VACCINES (1 - Tdap) 1990 HEPATITIS B VACCINE (1 of 3 - 19+ 3-dose series) 1990 PNEUMOCOCCAL VACCINE 50+ (1 of 1 - PCV) 2021 ZOSTER VACCINE (1 of 2) 2021 COVID-19 VACCINE (4 - 2023-2 5 season) 2024 09/16/2022, 03/25/2021, 02/25/2021 INFLUENZA VACCINE (#1) 2024 , 01/14/2019 DEPRESSION SCREENING Completed 12/22/2024 HIB VACCINE Aged Out No longer eligi ble based on patient's age to complete this topic HPV VACCINE Aged Out No longer eligi ble based on patient's age to complete this topic MENINGOCOCCAL (Group B) VACCINE Aged Out No longer eligible b ased on patient's age to complete this topic MENINGOCOCCAL VACCINE Aged Out No marlon katia eligible based on patient's age to complete this topic Procedures Procedure Name Priority Date/Time Associated Diagnosis Comments CULTURE URINE Routine 12/22/2024 2:58 PM BALLASTER Urinary urgency URINALYSIS - POCT (IP) URGENT CARE Routine 12/22/2024 2:52 PM BALLASTER Urinary urgency from Last 3 Months Results * CULTURE URINE (12/22/2024 2:58 PM BALLASTER) Culture Urine <10,000 CFU/mL urogenital catherine KEE 12/24/2024 1:21 AM BALLASTER [facility] Urine URINE SPECIMEN OBTAINED BY CLEAN CATCH PROCEDURE / Unknown Collection / Unknown 12/22/2024 2:58 PM BALLASTER 12/22/2024 2:58 PM BALLASTER Katya MARSHRF TEST ENGINEER LAB - MICROBIOL OGY ORDERABLES [facility] [address] [place] [address], [facility] [phone] * URINALYSIS - POCT (IP) URGENT CARE (12/22/2024 2:52 PM BALLASTER) Glucose UA NEG Negative [facility] Bilirubin UA NEG Negative [facility] Ketone UA NEG Negative [facility] Specific [place] UA POCT 1.000 1.000 - 1.030 [facility] Blood UA NEG Negative [facility] pH UA 6.5 5.0 - 8.0 pH units [facility] Protein UA NEG Negative [facility] Urobilinogen UA 0.2 0.2 - 1.0 EU/dL [facility] Nitrite UA NEG Negative [facility] Leukocyte UA NEG Negative [facility] QC Verified Yes Yes [facility] Urine URINE / Unknown 12/22/2024 2 :52 PM BALLASTER Katya Zapata APRN-RF TEST ENGINEER LAB - POINT OF CARE ORDERABLES [facility] [address] [place] [address], [facility] [phone] from Last 3 Months Advance Directives * Full Code (Latest Code Status on File) Date Activated Date Inactivated Comments 01/13/2019 10:54 PM 01/14/2019 8:30 PM * Full Code Date Activated Date Inactivated Comments 08/07/2010 5:21 AM 08/08/2010 12:34 AM Care Teams Stretching Press Operator Relationship Specialty Start Date End Date Haroon Gomez MD [address] [place] [id number] PCP - General Family Medicine 01/13/19
--- OUTSIDE RECORDS SUMMARY | 2024-12-26 01:12 | XMS_ITS | Patient Health Summary ---
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 low percentage of patients with VTE may yield D-Dimer results below the cut-off value. An elevated D-Dimer result has low specificity (40.4% for PE, 35.5% for DVT) and is a poor predictor of VTE. An elevated D-Dimer result may indicate DIC in the appropriate clinical setting. Results of this test should always be interpreted in conjunction with the patient's medical history, clinical presentation, and other findings. Avni Atkinson MD LAB - COAGULATION OR DERABLES [facility] [address] [id number] * NT-PRO BNP (01/13/2019 6:19 PM WORKFORCE MANAGER) NT-proBNP <5.0 <300.0 pg/mL 01/13/2019 9:32 PM WORKFORCE MANAGER [facility] Blood BLOOD SPECIMEN / Unknown Venipuncture / Unknown 01/13/2019 6:19 PM WORKFORCE MANAGER 01/13/2019 6:23 PM WORKFORCE MANAGER Narrative [facility] - 01/13/2019 9:32 PM WORKFORCE MANAGER NT-proBNP Patient Age ? Acute HF Unlikely ? Acute HF Likely <50 years ? <300 pg/mL ? >450 pg/mL 50-75 years ?<300 pg/mL ? >900 pg/mL >75 years ? <300 pg/mL ? >1800 pg/mL Reference: ERIK Jessica et al. ICON Study. Heart Journal (2006) 27, [phone]- [phone] Both BNP and NT-proBNP derive from the precursor molecule called proBNP which is secreted from the ventricles in response to ventricle volume expansion and/or pressure overload. The secreted proBNP is subsequently cleaved by enzymes to form BNP, the active hormone and NT-proBNP an inactive metabolite. NT-proBNP has a longer half-life of 1.5-2.0 hours verses BNP with a half-life of 20 min for BNP. Both are useful biomarkers of ventricular distension due to increased intracardiac pressure. Both BNP and NT-proBNP increase with age and renal insufficiency. Increased concentrations of NT-proBNP have also been observed in the setting of acute myocardial infarction, right ventricular failure, valvular heart disease, and atrial fibrillation. Avni Atkinson MD LAB - CHEMISTRY JESSICA WILL [facility] Organization Address City/State/ZIP Co de Phone Number [facility] [address] [place] [address] * XR CHEST PA AND LATERAL (01/13/2019 5:57 PM WORKFORCE MANAGER) Anatomical Region Laterality Modality Chest Radiographic Dana ging 01/13/2019 6:00 PM WORKFORCE MANAGER Narrative 01/13/2019 6:01 PM WORKFORCE MANAGER Chest Two Views History: Other chest pain Comparison: None Findings: ??There is a shallow degree of inspiration with crowding of the lung markings but no focal airspace consolidation. ??No pneumothorax or pleural effusion. ??The cardiomediastinal silhouette is within normal limits. Reading Radiologist: Haydee Roper MD on 01/13/2019 at 6:01 PM Procedure Note Haydee Roper MD - 01/13/2019 Chest Two Views History: Other chest pain Comparison: None Findings: There is a shallow degree of inspiration with crowding of the lung markings but no focal airspace consolidation. No pneumothorax or pleural effusion. The cardiomediastinal silhouette is within normal limits. Reading Radiologist: Haydee Roper MD on 01/13/2019 at 6:01 PM Avni Atkinson MD DIAGNOSTIC IMAGING O RDERABLES * CT CERVICAL SPINE WO CONTRAST (11/05/2018 2:49 PM WORKFORCE MANAGER) Anatomical Region Laterality Modality Spine Computed Tomogra phy 11/05/2018 2:58 PM WORKFORCE MANAGER Impressions 11/05/2018 3:00 PM WORKFORCE MANAGER 1. Loss of normal lordosis. No fracture. Reading Radiologist: Avila Correa MD on 11/05/2018 at 3:00 PM Narrative 11/05/2018 3:[address] CERVICAL SPINE WITHOUT CONTRAST CT CORONAL/SAGITTAL RECONSTRUCTED IMAGES. INDICATION: Neck pain after injury TECHNIQUE: 2 mm axial images through the cervical spine noncontrast followed by coronal and sagittal reconstructed images. FINDINGS: The ring of C1 is intact. There is loss of normal cervical lordosis suggesting muscle strain or patient positioning. There is no evidence of acute fracture, subluxation, or dislocation. The paravertebral soft tissue is unremarkable. No central canal stenosis is present. The sagittal and coronal reconstructed images confirm the above findings. The lateral masses and the odontoid appear intact. Procedure Note Avila Correa MD - 11/05/2018 CT CERVICAL SPINE WITHOUT CONTRAST CT CORONAL/SAGITTAL RECONSTRUCTED IMAGES. INDICATION: Neck pain after injury TECHNIQUE: 2 mm axial images through the cervical spine noncontrast followed by coronal and sagittal reconstructed images. FINDINGS: The ring of C1 is intact. There is loss of normal cervical lordosis suggesting muscle strain or patient positioning. There is no evidence of acute fracture, subluxation, or dislocation. The paravertebral soft tissue is unremarkable. No central canal stenosis is present. The sagittal and coronal reconstructed images confirm the above findings. The lateral masses and the odontoid appear intact. IMPRESSION 1. Loss of normal lordosis. No fracture. Reading Radiologist: Avila Correa MD on 11/05/2018 at 3:00 PM Phil Hurley MD CT ORDERABLES * CT HEAD WO CONTRAST (11/05/2018 2:49 PM WORKFORCE MANAGER) Anatomical Region Laterality Modality Head Computed Tomogra phy 11/05/2018 2:57 PM WORKFORCE MANAGER Impressions 11/05/2018 2:58 PM WORKFORCE MANAGER No acute intracranial pathology Sinus thickening. Reading Radiologist: Avila Correa MD on 11/05/2018 at 2:58 PM Narrative 11/05/2018 2:[address] BRAIN NONCONTRAST CLINICAL INDICATION: Headache after metal locker fell on head. Blurry vision. TECHNIQUE: 5 mm images through the brain noncontrast. COMPARISON: None FINDINGS The ventricles, gyri and sulci are appropriate. There is no midline shift, mass, mass effect or acute intracranial hemorrhage. No acute cortical infarct is demonstrated. The calvarium is intact. There is ethmoid sinus thickening and mild left maxillary sinus thickening. Procedure Note Avila Correa MD - 11/05/2018 CT BRAIN NONCONTRAST CLINICAL INDICATION: Headache after metal locker fell on head. Blurry vision. TECHNIQUE: 5 mm images through the brain noncontrast. COMPARISON: None FINDINGS The ventricles, gyri and sulci are appropriate. There is no midline shift, mass, mass effect or acute intracranial hemorrhage. No acute cortical infarct is demonstrated. The calvarium is intact. There is ethmoid sinus thickening and mild left maxillary sinus thickening. IMPRESSION No acute intracranial pathology Sinus thickening. Reading Radiologist: Avila Correa MD on 11/05/2018 at 2:58 PM Phil Hurley MD CT ORDERABLES * XR LEFT FOOT (08/09/2018 11:23 PM CDT) Anatomical Region Laterality Modality Ankle / Foot Radiographic Dana ging 08/10/2018 12:0 1 AM CDT Impressions 08/10/2018 12:02 AM CDT Negative for fracture at this time.. ?? Please see above discussion. Reading Radiologist: Raheem Koo MD on 08/10/2018 at 12:02 AM Narrative 08/10/2018 12:02 AM CDT Examination: Left foot 3 views INDICATION: Pain in right ankle and joints of right foot . ??Pt fell downstairs; pain anterior left join area of ankle and anterior metatarsal area to toes of left foot. FINDINGS: ??No fracture can be identified on the current plain films.. . ??If the patient's symptoms persist or worsen, please consider a higher level imaging study to exclude an occult process. Procedure Note Raheem Koo MD - 08/10/2018 Examination: Left foot 3 views INDICATION: Pain in right ankle and joints of right foot . Pt fell downstairs; pain anterior left join area of ankle and anterior metatarsal area to toes of left foot. FINDINGS: No fracture can be identified on the current plain films.. . If the patient's symptoms persist or worsen, please consider a higher level imaging study to exclude an occult process. IMPRESSION Negative for fracture at this time.. Please see above discussion. Reading Radiologist: Raheem Koo MD on 08/10/2018 at 12:02 AM Bruno Ramos DO DIAGNOSTIC IMAG ING ORDERABLES * XR LEFT ANKLE (08/09/2018 11:22 PM CDT) Anatomical Region Laterality Modality Lower Extremity Radiographic Dana ging 08/10/2018 12:0 1 AM CDT Impressions 08/10/2018 12:01 AM CDT Negative for fracture at this time.. ?? Please see above discussion. Reading Radiologist: Raheem Koo MD on 08/10/2018 at 12:01 AM Narrative 08/10/2018 12:01 AM CDT Examination: Left ankle 3 views INDICATION: Pain in right ankle and joints of right foot . ??Pt fell downstairs; pain anterior left join area of ankle and anterior metacarpal area to toes of left foot. FINDINGS: ??No fracture can be identified on the current plain films.. . ??If the patient's symptoms persist or worsen, please consider a higher level imaging study to exclude an occult process. Procedure Note Raheem Koo MD - 08/10/2018 Examination: Left ankle 3 views INDICATION: Pain in right ankle and joints of right foot . Pt fell downstairs; pain anterior left join area of ankle and anterior metacarpal area to toes of left foot. FINDINGS: No fracture can be identified on the current plain films.. . If the patient's symptoms persist or worsen, please consider a higher level imaging study to exclude an occult process. IMPRESSION Negative for fracture at this time.. Please see above discussion. Reading Radiologist: Raheem Koo MD on 08/10/2018 at 12:01 AM Bruno Will Richard DO DIAGNOSTIC IMAG ING ORDERABLES * PATHOLOGY/CYTOLOGY REPORT ORDER (08/17/2017 10:34 PM CDT) Narrative 08/17/2017 10:34 PM CDT Ordered by an unspecified provider. Scanned Document LAB - PATHOLOGY/CYTO LOGY ORDERABLES * GROSS + MICRO EXAM (STL) (08/16/2017 8:49 AM CDT) Case Report Surgical Pathology Report ? Case: [id number] ? Authorizing Provider: ??Heriberto Lemus MD ?Collected: ? 08/16/2017 08:49 AM ? Ordering Location: ? [facility] ?Received: ?08/16/2017 10:21 AM ? Pathologist: ? Junito Pascual MD ? Specimens: ?? A) - Lipoma, back mass ? B) - Lipoma, right forearm mass ? C) - Lipoma, left forearm mass ? 08/18/2017 5:53 PM T [facility] Final Diagnosis Mass, back, excisional biopsy: - Mature adipose tissue, consistent with lipoma. Mass, right forearm, excisional biopsy: - Mature adipose tissue with increased vasculature and thrombi in the vasculature, consistent with angiolipoma. Mass, left forearm, excisional biopsy: - Mature adipose tissue with increased vasculature and thrombi in the vasculature, consistent with angiolipoma. SSD/matthew 08/18/2017 5:53 PM [facility] Clinical History Lipoma 08/18/2017 5:53 PM [facility] Gross Description The specimens are received fixed in formalin in three containers. All three containers are labeled with the patient's name, Bibi Chairez. Specimen A, back mass in formalin, consists of two lobular portions of yellow-pink fatty tissue measuring 2.2 x 1.6 x 1.2 cm. Cut surface reveals the same lobular, yellow-pink fatty tissue with no areas of hemorrhage or necrosis. Economics Teacher sections are submitted in cassette A1. Specimen B, right forearm mass in formalin, consists of one lobular portion of yellow-orange fatty tissue measuring 1.7 x 0.8 x 0.6 cm. Cut surface reveals the same lobular, yellow fatty tissue. The specimen is submitted entirely in cassette B1. Specimen C, left forearm mass in formalin, consists of a 1.6 x 1.2 x 0.3 cm portion of lobular, yellow-pink, fatty tissue. Cut surface reveals the same lobular, yellow-pink, fatty tissue with no areas of hemorrhage or necrosis. The specimen is submitted entirely in cassette C1. MR/ns 08/18/2017 5:53 PM [facility] Microscopic Description 1,3. The H&E sections show mature adipose tissue, consistent with lipoma. 2. The H&E sections show predominantly mature adipose tissue with focal areas with increased spindle cells, and vasculature. The small vasculature has thrombi. There is no atypia or necrosis. The findings are consistent with angiolipoma. SSD/matthew 08/18/2017 5:53 PM [facility] Disclaimer All histochemical and/or immunohistochemical results are interpreted with controls that demonstrate appropriate staining reactions before reporting results. Note on use of immunocytochemistry reagents: This test was developed and its performance characteristic determined by [facility], Department of Laboratory Medicine. It has not been cleared or approved by the U.S. Food and Drug Administration (FDA). The FDA has determined that such clearance or approval is not necessary. The test is used for clinical purpose. It should not be regarded as investigational or for research. This laboratory is certified to perform high complexity testing. 08/18/2017 5:53 PM [facility] Embedded Images 08/18/2017 5:53 PM [facility] Pathology/Cytology LIPOMA / Unknown 08/16 8:49 AM CDT 08/16/2017 10:21 AM CDT Miscellaneous samples (specimen) LIPOMA / Unknown 08/16/2017 8:49 AM CDT 08/16/2017 10:21 AM CDT Miscellaneous samples (specimen) LIPOMA / Unknown 08/16/2017 8:49 AM CDT 08/16/2017 10:21 AM CDT Heriberto Lemus MD LAB - PATHOLOGY/CYTO LOGY ORDERABLES [facility] [address] [place] [address] Care Teams Precast Molder Relationship Specialty Start Date End Date Haroon Gomez MD [address] [facility] [address] [place] [address] PCP - General Family Medicine 01/13/19
[2024-12-26 08:39] VITALS: BP 139/93; PULSE 85; RESP 16; TEMP 36; O2SAT 96; BMI 34.7
--- NOTE | 2024-12-26 08:42 | WPDANESEPPF ---
Anes - Initial Pre Proc Eval Procedure: Operation Date: 12/26/24 09:30 Proposed Procedures p Screening Colonoscopy - Jama Hicks DO Date/Time: 12/26/24 08:42 Surgeon: Jama Hicks DO Pre Op Diagnosis: screening for malignant neoplasm of colon Patient Data Age: 54 Gender: M Height: 1.75 m Weight: 106.6 kg Last Vital Signs Temp 36.0 C L 12/26/24 08:39 Pulse 85 12/26/24 08:39 Resp 16 12/26/24 08:39 BP 139/93 H 12/26/24 08:39 Pulse Ox 96 12/26/24 08:39 O2 Del Method Room Air 12/26/24 08:39 Allergies Allergy/AdvReac Type Severity Reaction Status Date / Time Sulfa (Sulfonamide Allergy Severe Anaphylactic Verified 12/26/24 08:36 Antibiotics) Shock Bumble Bee Allergy Severe Anaphylactic Uncoded 12/26/24 08:36 Shock Cat Dander Allergy Severe Anaphylactic Uncoded 12/26/24 08:36 Shock Contrast Media Allergy Severe STOP Uncoded 12/26/24 08:36 BREATHING- SWELL UP SHELLFISH Allergy Severe SWELL UP Uncoded 12/26/24 08:36 AND CAN'T BREATH Home Medications ?Medication ?Instructions ?Recorded ?Confirmed ?Type cetirizine 10 mg tablet (Zyrtec) 10 mg PO DAILY 05/26/23 12/23/24 History albuterol sulfate 90 mcg/actuation See Rx Instructions .Route 09/19/24 12/23/24 Rx aerosol inhaler .COMPLEX #9 grams losartan 50 mg tablet 50 mg PO DAILY #90 tabs 10/21/24 12/23/24 Rx acetaminophen 500 mg capsule 500 mg PO Q6H PRN pain #14 caps 11/06/24 12/23/24 Rx epinephrine 0.3 mg/0.3 mL 0.3 mg (0.3 mL) IM ONCE #2 ea 11/06/24 12/23/24 Rx injection, auto-injector (EpiPen 2-Rah) hydrocodone 5 mg-acetaminophen 325 1 tablet PO Q4H PRN pain #40 tabs 12/05/24 12/23/24 Rx mg tablet phentermine 37.5 mg tablet 37.5 mg PO DAILY #30 tabs 12/05/24 12/26/24 Rx paroxetine HCl 30 mg tablet 60 mg (2 x 30 mg) PO DAILY #180 12/13/24 12/23/24 Rx tabs tamsulosin 0.4 mg capsule 0.4 mg PO DAILY #30 caps 12/22/24 12/23/24 Rx ciprofloxacin HCl 500 mg tablet 500 mg PO BID #28 tabs 12/23/24 12/23/24 Rx Patient hx anesthesia problems: none Family hx anesthesia problems: none Results Review: All pre-operative results and documents have been reviewed as part of the pre-operative evaluation. [facility] Past Medical History Medical History Hypertension History of non-Hodgkin's lymphoma Pure hypercholesterolemia, unspecified Surgical History Surgical History History of cholecystectomy (2014) History of Hemal fundoplication History of tonsillectomy (2014) Family History Family History Father Multiple sclerosis CAD (coronary artery disease) Mother Diabetes mellitus Hypertension CAD (coronary artery disease) Social History Social History (Updated 12/05/24 @ 08:03 [address]ama [address] [facility]) Smoking packs per day: 1 Smoking cigarettes per day: 20.0 Years smoked: 15 Smoking pack-years: 15.00 Smoking status: Former smoker Tobacco type: cigarettes Smoking end date: 11/27/99 Alcohol intake: current Alcohol use details: VERY RARE Substance use: never Substance use type: does not use Do You Feel Safe in your Home?: Yes Lack of Transportation: No Lack of Food: Never True Current Housing: I Have Housing Concerned About Future Housing: No Difficulty Paying Gas/Electric Bills: No Difficulty Paying for Meds: No Currently Unemployed: No Education: Bachelor's Degree Difficulty w/ Childcare or Family Care: No Living arrangements: with family Additional living arrangements comments: CHILDREN Spiritual care concerns: No Anes - Eval Final PreProcedure Day of Procedure 12/26/24 08:42 Patient weight: obese Heart: regular rate and rhythm Lungs: clear to auscultation Airway: Mallampati scale class II Neurological: alert and oriented Last oral intake: >/= 8 hours ASA classification: III Emergent: no Anesthetic plan: proceed Anesthesia type and monitoring: general GIVS and standard monitoring Results Review: All pre-operative results and documents have been reviewed as part of the pre-operative evaluation. Informed Consent: The patient's anesthetic plan and its attendant risks and benefits were discussed with the patient/family/POA. Questions were solicited and answers provided to the satisfaction of the patient/family/POA.
[2024-12-26] MEDS: LACTATED RINGERS 1,000 ML 150 ML IV CONT (08:52)
--- NOTE | 2024-12-26 09:23 | P.HP_ITS ---
H&P: HPI History of Present Illness Date/Time: 12/26/24 09:23 Chief Complaint: Screening for colorectal cancer Narrative: This is a 54-year-old man who presents for colonoscopy. His last colonoscopy was about 10 years ago was normal. He denies hematochezia or melena. He denies family history of colon cancer. Review of Systems Review of Systems: All systems reviewed & are unremarkable except as noted in HPI and below Constitutional: Constitutional: Denies chills, Denies fever(s), Denies headache(s) and Denies weight loss Eyes: Eyes: Denies change in vision ENT: Denies dizziness, Denies headache(s), Denies neck mass and Denies throat swelling Cardiovascular: Cardiovascular: Denies chest pain, Denies lightheadedness and Denies dyspnea Respiratory: Respiratory: Denies cough, Denies dyspnea and Denies wheezing Gastrointestinal: Gastrointestinal: Denies abdominal pain, Denies change in bowel habits, Denies nausea and Denies vomiting Genitourinary: Genitourinary: Denies hematuria and Denies dysuria Musculoskeletal: Musculoskeletal: Reports as per HPI Integumentary/Breasts: Skin/Breast: Reports as per HPI Neurologic: Denies dizziness and Denies headache(s) Allergic/Immunologic: Allergic/Immunologic: Denies throat swelling and Denies wheezing [facility] Past Medical History Medical History Hypertension History of non-Hodgkin's lymphoma Pure hypercholesterolemia, unspecified Surgical History Surgical History History of cholecystectomy (2014) History of Hemal fundoplication History of tonsillectomy (2015) Family History Family History Father Multiple sclerosis CAD (coronary artery disease) Mother Diabetes mellitus Hypertension CAD (coronary artery disease) Social History Social History (Updated 12/05/24 @ 08:03 by Gama Kendall [facility]) Smoking packs per day: 1 Smoking cigarettes per day: 20.0 Years smoked: 15 Smoking pack-years: 15.00 Smoking status: Former smoker Tobacco type: cigarettes Smoking end date: 11/27/99 Alcohol intake: current Alcohol use details: VERY RARE Substance use: never Substance use type: does not use Do You Feel Safe in your Home?: Yes Lack of Transportation: No Lack of Food: Never True Current Housing: I Have Housing Concerned About Future Housing: No Difficulty Paying Gas/Electric Bills: No Difficulty Paying for Meds: No Currently Unemployed: No Education: Bachelor's Degree Difficulty w/ Childcare or Family Care: No Living arrangements: with family Additional living arrangements comments: CHILDREN Spiritual care concerns: No Meds Home Medications and Allergies Home Medications ?Medication ?Instructions ?Recorded ?Confirmed ?Type cetirizine 10 mg tablet (Zyrtec) 10 mg PO DAILY 05/26/23 12/23/24 History albuterol sulfate 90 mcg/actuation See Rx Instructions .Route 09/19/24 12/23/24 Rx aerosol inhaler .COMPLEX #9 grams losartan 50 mg tablet 50 mg PO DAILY #90 tabs 10/21/24 12/23/24 Rx acetaminophen 500 mg capsule 500 mg PO Q6H PRN pain #14 caps 11/06/24 12/23/24 Rx epinephrine 0.3 mg/0.3 mL 0.3 mg (0.3 mL) IM ONCE #2 ea 11/06/24 12/23/24 Rx injection, auto-injector (EpiPen 2-Rah) hydrocodone 5 mg-acetaminophen 325 1 tablet PO Q4H PRN pain #40 tabs 12/05/24 12/23/24 Rx mg tablet phentermine 37.5 mg tablet 37.5 mg PO DAILY #30 tabs 12/05/24 12/26/24 Rx paroxetine HCl 30 mg tablet 60 mg (2 x 30 mg) PO DAILY #180 12/13/24 12/23/24 Rx tabs tamsulosin 0.4 mg capsule 0.4 mg PO DAILY #30 caps 12/22/24 12/23/24 Rx ciprofloxacin HCl 500 mg tablet 500 mg PO BID #28 tabs 12/23/24 12/23/24 Rx Allergies Allergy/AdvReac Type Severity Reaction Status Date / Time Sulfa (Sulfonamide Allergy Severe Anaphylactic Verified 12/26/24 08:36 Antibiotics) Shock Bumble Bee Allergy Severe Anaphylactic Uncoded 12/26/24 08:36 Shock Cat Dander Allergy Severe Anaphylactic Uncoded 12/26/24 08:36 Shock Contrast Media Allergy Severe STOP Uncoded 12/26/24 08:36 BREATHING- SWELL UP SHELLFISH Allergy Severe SWELL UP Uncoded 12/26/24 08:36 AND CAN'T BREATH Vital Signs Vital Signs - 24 hr 12/26/24 08:39 Temperature 96.8 F L Pulse Rate 85 Respiratory Rate 16 Blood Pressure 139/93 H Pulse Oximetry 96 Oxygen Delivery Room Air Exam Const: General: no acute distress and alert Orientation/consciousness: patient oriented x3 HENMT: Head: normocephalic and atraumatic Ears: hearing grossly normal bilaterally Face/Nose/Sinus: Normal nares present Mouth: Yes Normal oral and palatal mucosa present Eyes: Periorbital: periorbital findings normal Sclera: sclerae normal EOM: EOMs intact bilaterally Neck: Neck: normal visual inspection, no lymphadenopathy and trachea midline Chest: Chest palpation & inspection: normal inspection of the chest Resp: Effort & Inspection: normal respiratory effort Auscultation: clear to auscultation bilaterally Cardio: Jugular venous distension: no JVD Rate: regular rate Rhythm: regular rhythm Heart sounds: S1 normal heart sound present and S2 normal heart sound present Peripheral pulses: Peripheral pulses 2+ throughout GI: Inspection: normal to inspection GI Palp: Yes Soft to palpation, No Tenderness to palpation present (GI), No Guarding due to palpation present (GI) and No Rebound tenderness present Percussion: Yes normal to percussion Auscultation: normal bowel sounds : General: Yes no CVA tenderness Back/Spine/Pelvis: Back: no CVA tenderness Neuro: General: patient oriented x3, no focal motor deficits and CN's II-XI intact bilaterally Cognition (Neuro): normal cognition Speech: normal speech Motor exam (neuro): 5/5 motor strength present throughout Extrem: General: capillary refill normal and no clubbing, cyanosis or edema Assessment and Plan Assessment and plan (1) Screening for colorectal cancer: Code(s): Z12.11 - Encounter for screening for malignant neoplasm of colon; Z12.12 - Encounter for screening for malignant neoplasm of rectum Status: Acute Assessment and Plan: I have recommended colonoscopy. I have discussed the procedure, risks, benefits, and alternatives. Questions were answered. Patient is agreeable to proceed.
[2024-12-26 10:00] VITALS: BP 95/64; PULSE 79; RESP 14; O2SAT 93
[2024-12-26 10:10] VITALS: BP 103/70; PULSE 75; RESP 11; O2SAT 97
[2024-12-26 10:20] VITALS: BP 111/70; PULSE 72; RESP 11; O2SAT 98
== END 2024-12-26 10:43 | disposition home or self-care (01) ==
PROVIDERS: PCP Family Medicine Adolescent Medicine; Visit Provider Surgery
PROC: 0DJD8ZZ Inspection of Lower Intestinal Tract, Via Natural or Artificial Opening Endoscopic (ICD-10-PCS; CPT 45378; principal; 2024-12-26 09:30)
DX: Z12.11 Encounter for screening for malignant neoplasm of colon (principal); D12.2 Benign neoplasm of ascending colon; K57.30 Diverticulosis of large intestine without perforation or abscess without bleeding; K64.8 Other hemorrhoids; Z87.891 Personal history of nicotine dependence; E66.9 Obesity, unspecified; Z68.34 Body mass index [BMI] 34.0-34.9, adult
CPT/HCPCS: 45380; 88305; J2003; J2704; J7120